=== PATIENT | female | born 1975 | race Caucasian/White ===

== ENCOUNTER 2020-09-21 20:29 | Emergency (ER) | payer BC ==
[2020-09-21] MEDS: Proparacaine 0.5% Ophth Soln 15 ML Bottle EYELF PRN (20:42)
[2020-09-21] MEDS: Fluorescein 1 MG Ophth Strip EYEBOTH ONE (20:45)
--- NOTE | 2020-09-21 21:07 | EDM.PDOC ---
ED HPI GENERAL MEDICAL PROBLEM - General Chief Complaint: ENT Problem Stated Complaint: LEFT EYE PAIN Time Seen by Provider: 09/21/20 20:50 Source of Information: Reports: Patient History Limitations: Reports: No Limitations - History of Present Illness INITIAL COMMENTS - FREE TEXT/NARRATIVE: Patient complains of left eye pain and swelling that started suddenly this afternoon and continued to get worse. Denies any discharge from the eye, swelling started at the inferior and lateral aspect and has continued to worsen over the day. CAn see out of the eye, slightly blurry. Denies any trauma or chemical contact. no skin lesions. 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 She has not had problems in awhile. No herpes lesions no the lips or face of her or her partner. Otherwise has been well. Just started her vacation. - Related Data Allergies Allergy/AdvReac Type Severity Reaction Status Date / Time tramadol [From Ultram] Allergy Anaphylactic Verified 09/21/20 21:06 Shock Social & Family History - Recreational Drug Use Recreational Drug Use: No Drug Use in Last 12 Months: No ED ROS GENERAL - Review of Systems Review Of Systems: See Below Constitutional: Reports: No Symptoms HEENT: Reports: Eye Pain (left) Respiratory: Reports: No Symptoms Cardiovascular: Reports: No Symptoms Endocrine: Reports: No Symptoms GI/Abdominal: Reports: No Symptoms : Reports: No Symptoms Musculoskeletal: Reports: No Symptoms Skin: Reports: No Symptoms Neurological: Reports: No Symptoms Psychiatric: Reports: No Symptoms ED EXAM GENERAL W FULL EYE - Physical Exam Exam: See Below Exam Limited By: No Limitations General Appearance: Alert, WD/WN, No Apparent Distress Eye Exam: Left Eye: Conjunctival Injection, Vision Changes (blurry 20/50), Bilateral Eye: EOMI, PERRL Visual Acuity (R) 20/: 30 Visual Acuity (L) 20/: 50 With Correction: Yes Eyelids: Left: Erythema, Lid Everted for Exam, Bilateral: Normal Appearance Conjunctiva & Sclera: Right: Normal Appearance, Left: Conjunctival Edema (lower and lateral), Injected, Other (injection of the conjunctiva, no drainage) Cornea Exam: Left: Normal Appearance (no dendrite, no abrasion) Extraocular Movements: Bilateral: Intact Pupils: Normal Accommodation Pupillary Size: Bilateral: 3 mm Pupillary Reaction: Bilateral: Brisk Ears: Normal External Exam Nose: Normal Inspection, Other (no skin lesions) Throat/Mouth: Normal Inspection, Normal Lips, Normal Teeth, Normal Voice Head: Atraumatic Neck: Normal Inspection Skin Exam: No: Rash, Zoster-Like Rash ED EYE w/ Add Procedure - Eye Procedure Alcaine Drops Administered: Yes Antibiotic Oinment/Drps Admin: Left Eye Progress: proparacaine drops and fluorscein , no dendrite,no corneal abrasions. Notable swelling of the lower later conjunctiva. Course - Orders/Labs/Meds Orders: Active Orders 24 hr Category Date Time Status Gentamicin [Take Home: Gentamicin 0.3% Ophth Soln, 1 Med 09/21/20 20:57 Once Edwardo] 1 packet EYELF ONETIME ONE Proparacaine [Proparacaine 0.5% Ophth Soln] Med 09/21/20 20:34 Ordered 1 ml EYELF ASDIRECTED PRN Medication Orders Proparacaine HCl (Proparacaine 0.5% Ophth Soln 15 Ml Bottle) 1 ml EYELF ASDIRECTED PRN PRN Reason: Other Meds: Medications Generic Name Dose Route Start Last Admin Trade Name Freq PRN Reason Stop Dose Admin Proparacaine HCl 1 ml 09/21/20 20:34 Proparacaine 0.5% Ophth Soln 15 Ml Bottle EYELF ASDIRECTED PRN Other Discontinued Medications Generic Name Dose Route Start Last Admin Trade Name Freq PRN Reason Stop Dose Admin Fluorescein Sodium 1 mg 09/21/20 20:34 Fluorescein 1 Mg Ophth Strip EYEBOTH 09/21/20 20:35 ONETIME ONE - Re-Assessments/Exams Free Text/Narrative Re-Assessment/Exam: 09/21/20 21:14 no dendrite or corneal abrasion seen. Will allow use of the proparacaine for two days prn. Start on gentamicin drops and see ophthalmology tomorrow. Departure - Departure Time of Disposition: 20:58 Disposition: Home, Self-Care 01 Clinical Impression: Conjunctivitis - Discharge Information *PRESCRIPTION DRUG MONITORING PROGRAM REVIEWED*: Not Applicable *COPY OF PRESCRIPTION DRUG MONITORING REPORT IN PATIENT SHANNA: Not Applicable Instructions: Bacterial Conjunctivitis, Adult, [id number], Allergic Conjunctivitis, Adult, [id number] Additional Instructions: You may use the proparacaine drops, 1-2 drops every 4-6 hours as needed for pain for the next 48 hours, refrigerate the bottle. Do not use it longer than that. DO NOT rub your eye. Use the antibiotic drops 1-2 drops to the left eye every 4 hours while awake. continue for 5 days. Follow up with sewing machine adjuster tomorrow, call for appointment. - My Orders Last 24 Hours: My Active Orders 09/21/20 20:34 Proparacaine [Proparacaine 0.5% Ophth Soln] 1 ml EYELF ASDIRECTED PRN 09/21/20 20:57 Gentamicin [Take Home: Gentamicin 0.3% Ophth Soln, 1 Edwardo] 1 packet EYELF ONETIME ONE - Assessment/Plan Last 24 Hours: My Active Orders 09/21/20 20:34 Proparacaine [Proparacaine 0.5% Ophth Soln] 1 ml EYELF ASDIRECTED PRN 09/21/20 20:57 Gentamicin [Take Home: Gentamicin 0.3% Ophth Soln, 1 Edwardo] 1 packet EYELF ONETIME ONE
[2020-09-21] MEDS: Take Home: Gentamicin 0.3% Ophth Soln 5 ML, 1 Bottle Pack EYELF ONE (21:10)
== END 2020-09-21 21:15 | disposition home or self-care (01) ==
LOC: VM.ED 20:29
DX: H10.9 Unspecified conjunctivitis (principal); Z88.5 Allergy status to narcotic agent
CPT/HCPCS: 99283; A9270